=== PATIENT | male | born 1975 | race African-American/Black ===

== ENCOUNTER 2020-09-24 16:50 | Emergency (ER) | payer BC, SELFPAY ==
[2020-09-24 17:10] VITALS: BP 132/73; PULSE 77; RESP 16; TEMP 36.2; O2SAT 99
--- NOTE | 2020-09-24 17:22 | ED.UPPEXIN ---
HPI - Extremity Injury (Upper) General Chief Complaint: Extremity Injury, Upper Stated Complaint: Shoulder and arm Pain Source: patient Mode of arrival: ambulatory Limitations: no limitations History of Present Illness HPI narrative: Patient is a 45-year-old male who presents complaining of right shoulder pain. Patient reports pain over the past month, increasing over the past few days. 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 He denies radiation of pain to chest or back. He denies chest pain or shortness of breath. He reports taking Tylenol with limited relief. complaint: injury to: shoulder Related Data Allergies Allergy/AdvReac Type Severity Reaction Status Date / Time No Known Allergies Allergy Verified 09/24/20 17:01 Review of Systems Review of Systems: Narrative: CONSTITUTIONAL: Denies fever, chills, or sweats. EYES: Denies visual changes, redness, or discharge. ENT: Denies rhinorrhea, congestion, sore throat, or otalgia. CARDIOVASCULAR: Denies chest pain, palpitations, or edema. RESPIRATORY: Denies cough or dyspnea. GASTROINTESTINAL: Denies abdominal pain, nausea, vomiting, or diarrhea. GENITOURINARY: Denies dysuria or hematuria. SKIN: Denies rash or itching. MUSCULOSKELETAL: Right shoulder pain NEUROLOGIC: Denies headache, numbness, dizziness, or weakness. PSYCHIATRIC: Denies anxiety or depression. [facility] Past Medical History Medical History No significant past medical history Surgical History Surgical History No significant past surgical history Family History Family History (Updated 09/24/20 @ 17:25 by KAMRON Doty) Other Diabetes mellitus Hypertension Social History Social History (Updated 09/24/20 @ 17:26 by KAMRON Doty) Smoking status: Never smoker Alcohol intake: never Substance use: never Living arrangements: with family Occupation/Education: occupation Gender identity (if verbalized by the patient): Male Comments At the time of signature, I have reviewed and agree with nursing past medical, surgical, social, and family history unless otherwise noted. Please see nursing chart for further information. There is no relevant family history pertinent to the presenting complaint. Exam Narrative: Exam Narrative: GENERAL: Well-appearing, well-nourished, and in no acute distress. HEAD: Normocephalic, atraumatic. EYES: EOMI. No redness or drainage. Conjunctiva are normal. ENT: Mucous membranes pink and moist. CHEST: No respiratory distress. HEART: Regular rate and rhythm. No murmur appreciated. Normal peripheral pulses. EXTREMITIES: Normal range of motion. No edema. Illuminating Engineer equal. Tenderness with palpation and passive range of motion to right shoulder SKIN: Warm, dry, no rash. NEURO: No focal deficits. Alert and oriented x3. Gait steady. PSYCH: Normal affect. No signs of depression or anxiety. Course Vital Signs Vital signs: Vital Signs Temperature 36.2 C L 09/24/20 17:10 Pulse Rate 77 09/24/20 17:10 Respiratory Rate 16 09/24/20 17:10 Blood Pressure 132/73 09/24/20 17:10 Pulse Oximetry 99 09/24/20 17:10 Temperature 36.2 C L 09/24/20 17:10 Pulse Rate 77 09/24/20 17:10 Respiratory Rate 16 09/24/20 17:10 Blood Pressure 132/73 09/24/20 17:10 Pulse Oximetry 99 09/24/20 17:10 Reviewed. Patient has been instructed to follow-up with his PCP regarding his blood pressure. MDM - Extremity Injury (Upper) MDM Narrative Medical decision making narrative: Patient most likely has musculoskeletal pain to right shoulder from work activity. Discussed with patient the need to follow-up with orthopedics and PCP for further diagnostic testing and evaluation. Patient is aware if he develops chest pain or shortness of breath, numbness or tingling in
[2020-09-24] MEDS: KETOROLAC (*BKC) 60 MG/2 ML VIAL IM (17:28)
== END 2020-09-24 18:01 | disposition home or self-care (01) ==
PROVIDERS: Emergency Provider Nurse Practitioner
DX: M25.511 Pain in right shoulder (principal)
CPT/HCPCS: 96372; 99203; G0463; J1885